=== PATIENT | female | born 1960 | race Caucasian/White ===

== ENCOUNTER 2018-07-09 00:35 | Observation (INO) | payer BC ==
--- NOTE | 2018-07-09 01:21 | EDM.PDOC ---
ED HPI GENERAL MEDICAL PROBLEM - General Chief Complaint: General Stated Complaint: fall Time Seen by Provider: 07/09/18 01:00 Source of Information: Reports: Patient, Family History Limitations: Reports: Language Barrier, Physical Impairment - History of Present Illness INITIAL COMMENTS - FREE TEXT/NARRATIVE: Patient is a 57-year-old with history of multiple system atrophy patient has been progressively getting worse was diagnosed approximately 2 years ago April 2016 but according to family patient has been ill with these symptoms for about 8 years progressively getting worse during the last couple days patient has progressive weakness to the point where her caregiver has been having hard time assisting with transfers and a ALd today patient was being transferred from her regular care to another chair and fell had a difficulty time getting her up patient fell again and was unable to to assist or get her back up to the chair 911 was called and patient was brought here for evaluation patient denies any pain from the fall just generalized weakness Onset: Gradual (Progressive weakness for about a year worsening in the last 4 days) Duration: Chronic, Getting Worse Location: Reports: Generalized Quality: Reports: Ache, Other (Weakness) Severity: Severe Improves with: Reports: None Worsens with: Reports: None Context: Reports: Other (Chronic illness) - Related Data Allergies Allergy/AdvReac Type Severity Reaction Status Date / Time No Known Allergies Allergy Verified 07/09/18 00:45 Home Meds: Home Meds ClonazePAM [KlonoPIN] 0.5 mg PO BEDTIME 07/09/18 [History] DULoxetine [Cymbalta] 60 mg PO BID 07/09/18 [History] Droxidopa [Northera] 400 mg PO BEDTIME 07/09/18 [History] Droxidopa [Northera] 500 mg PO DAILY 07/09/18 [History] Levothyroxine 25 mcg PO ACBREAKFAST 07/09/18 [History] Mirtazapine 15 mg PO BEDTIME 07/09/18 [History] Past Medical History Neurological History: Reports: Other (See Below) ED ROS GENERAL - Review of Systems Review Of Systems: See Below Constitutional: Reports: Fatigue HEENT: Reports: Eye Discharge, Glasses Respiratory: Reports: Shortness of Breath (Worse in the morning) Cardiovascular: Reports: No Symptoms, Blood Pressure Problem. Denies: Chest Pain Endocrine: Reports: Fatigue GI/Abdominal: Reports: Constipation. Denies: Abdominal Pain, Anorexia : Reports: Incontinence (Of urine has Araya catheter in place) Musculoskeletal: Reports: Other (Upper and lower extremity weakness also has Parkinson-like tremor) Skin: Reports: No Symptoms Neurological: Reports: Tremors, Trouble Speaking, Difficulty Walking, Weakness, Change in Speech, Gait Disturbance Psychiatric: Reports: No Symptoms Hematologic/Lymphatic: Reports: No Symptoms ED EXAM, GENERAL - Physical Exam Exam: See Below Exam Limited By: Other (Difficulty communicating secondary to an MSA) General Appearance: Alert, WD/WN, Severe Distress Ears: Normal External Exam, Normal Canal, Hearing Grossly Normal, Normal TMs Ear Exam: Bilateral Ear: Auricle Normal, Canal Normal, TM normal Nose: Normal Inspection, Normal Mucosa, No Blood Throat/Mouth: Normal Inspection, Normal Lips, Normal Teeth, Normal Gums, Normal Oropharynx, No Airway Compromise, Dysphagia, Inflammation. No: Normal Voice Head: Atraumatic, Normocephalic Neck: Normal Inspection, Supple, Non-Tender, Full Range of Motion Respiratory/Chest: Lungs Clear, Normal Breath Sounds, Chest Non-Tender, Decreased Breath Sounds Cardiovascular: Normal Peripheral Pulses, Regular Rate, Rhythm, No Edema, No Gallop, No JVD, No Murmur, No Rub GI/Abdominal: Normal Bowel Sounds, Soft, Non-Tender, Pelvis Stable, Other ( Constipation) (Female) Exam: Other (Araya) Rectal (Female) Exam: Deferred Back Exam: Decreased Range of Motion, Muscle Spasm, Other (Tremors Parkinson- like) Extremities: Limited Range of Motion, Other (Generalized weakness with tremors) . No: Pedal Edema Neurological: Alert, Oriented, CN II-XII Intact, Normal Cognition, Abnormal Gait , Sensory/Motor Deficit. No: Normal Gait Course - Vital Signs Last Recorded V/S: Last Vital Signs Temp 97.3 F 07/09/18 00:37 Pulse 92 07/09/18 00:37 Resp 20 07/09/18 00:37 BP 161/87 H 07/09/18 00:37 Pulse Ox 98 07/09/18 00:37 - Orders/Labs/Meds Orders: Active Orders 24 hr Category Date Time Status Communication Order [RC] ASDIRECTED Care 07/09/18 01:34 Active Communication Order [RC] ASDIRECTED Care 07/09/18 01:35 Active Communication Order [RC] ASDIRECTED Care 07/09/18 01:37 Active UA W/MICROSCOPIC [URIN] Stat Lab 07/09/18 01:32 Ordered Sodium Chloride 0.9% [Saline Flush] Med 07/09/18 01:33 Active 10 ml FLUSH ASDIRECTED PRN Saline Lock Insert [OM.PC] Stat Oth 07/09/18 01:34 Ordered Medication Orders Albuterol/Ipratropium (Duoneb 3.0-0.5 Mg/3 Ml) 3 ml NEB Q4H PRN PRN Reason: Dyspnea Clonazepam (Klonopin) 0.5 mg PO BEDTIME MELYSSA Lactated Ringer's (Ringers, Lactated) 1,000 mls @ 125 mls/hr IV ASDIRECTED MELYSSA Levothyroxine Sodium (Levothyroxine) 25 mcg PO ACBREAKFAST MELYSSA Mirtazapine (Remeron) 15 mg PO BEDTIME MELYSSA Non-Formulary Medication (Droxidopa [Northera]) 400 mg PO BEDTIME MELYSSA Non-Formulary Medication (Droxidopa [Northera]) 500 mg PO DAILY MELYSSA Non-Formulary Medication (Duloxetine [Cymbalta]) 60 mg PO BID MELYSSA Ondansetron HCl (Zofran Odt) 4 mg PO Q6H PRN PRN Reason: Nausea/Vomiting Sodium Chloride (Saline Flush) 10 ml FLUSH ASDIRECTED PRN PRN Reason: Keep Vein Open Labs: Laboratory Tests 07/09/18 07/09/18 07/09/18 Range/Units 01:32 01:32 01:32 WBC 11.8 H (4.0-10.2) K/uL RBC 4.47 (3.77-5.09) M/uL Hgb 13.5 (11.7-15.5) g/dL Hct 39.8 (34.0-46.0) % MCV 89.0 (84.0-98.0) fL MCH 30.2 (28.2-33.3) pg MCHC 33.9 (31.7-36.0) g/dL RDW 13.3 (11.2-14.1) % Plt Count 229 (150-350) K/uL Neut % (Auto) 82.5 H (45.0-80.0) % Lymph % (Auto) 10.8 (10.0-50.0) % Granite % (Auto) 5.6 (2.0-14.0) % Eos % (Auto) 0.8 (0.0-5.0) % Baso % (Auto) 0.3 (0.0-2.0) % Neut # (Auto) 9.72 H (1.40-7.00) K/uL Lymph # (Auto) 1.27 (0.50-3.50) K/uL Granite # (Auto) 0.66 (0.00-1.00) K/uL Eos # (Auto) 0.09 (0.00-0.50) K/uL Baso # (Auto) 0.03 (0.00-0.20) K/uL Sodium 139 (136-145) mmol/L Potassium 3.8 (3.5-5.1) mmol/L Chloride 102 (98-107) mmol/L Carbon Dioxide 26.3 (21.0-32.0) mmol/L BUN 17 (7-18) mg/dL Creatinine 0.79 (0.51-1.17) mg/dL Est Cr Clr Drug Dosing 71.39 mL/min Estimated GFR (MDRD) > 60 mL/min Glucose 121 H (74-106) mg/dL Lactic Acid 1.3 (0.4-2.0) mmol/L Calcium 8.9 (8.5-10.1) mg/dL Total Bilirubin 0.4 (0.2-1.0) mg/dL AST 30 (15-37) U/L ALT 38 (12-78) U/L Alkaline Phosphatase 99 (46-116) IU/L Total Protein 8.2 (6.4-8.2) g/dL Albumin 3.6 (3.4-5.0) g/dL Meds: Medications Generic Name Dose Route Start Last Admin Trade Name Freq PRN Reason Stop Dose Admin Albuterol/Ipratropium 3 ml 07/09/18 02:16 Duoneb 3.0-0.5 Mg/3 Ml NEB Q4H PRN Dyspnea Clonazepam 0.5 mg 07/09/18 20:00 Klonopin PO BEDTIME MELYSSA Lactated Ringer's 1,000 mls @ 125 mls/hr 07/09/18 02:30 Ringers, Lactated IV ASDIRECTED MELYSSA Levothyroxine Sodium 25 mcg 07/09/18 07:30 Levothyroxine PO ACBREAKFAST MELYSSA Mirtazapine 15 mg 07/09/18 20:00 Remeron PO BEDTIME MELYSSA Non-Formulary Medication 400 mg 07/09/18 20:00 Droxidopa [Northera] PO BEDTIME MELYSSA Non-Formulary Medication 500 mg 07/09/18 02:30 Droxidopa [Northera] PO DAILY MELYSSA Non-Formulary Medication 60 mg 07/09/18 08:00 Duloxetine [Cymbalta] PO BID MELYSSA Ondansetron HCl 4 mg 07/09/18 02:16 Zofran Odt PO Q6H PRN Nausea/Vomiting Sodium Chloride 10 ml 07/09/18 01:33 Saline Flush FLUSH ASDIRECTED PRN Keep Vein Open Departure - Departure Time of Disposition: 02:40 Disposition: Admitted As Inpatient 66 Condition: Poor Clinical Impression: Multiple system atrophy, Parkinson variant, Generalized weakness, Leukocytosis , unspecified - Discharge Information *PRESCRIPTION DRUG MONITORING PROGRAM REVIEWED*: No *COPY OF PRESCRIPTION DRUG MONITORING REPORT IN PATIENT JS: No - Problem List & Annotations (1) Multiple system atrophy, Parkinson variant SNOMED Code(s): 834698198 Code(s): G23.2 - STRIATONIGRAL DEGENERATION Status: Acute Current Visit: Yes Annotation/Comment:: Patient has fallen in the past and now admitted with general symptoms and falls will continue her medications as ordered consult social service physical therapy and speech pathology to assist in management. (2) Leukocytosis, unspecified SNOMED Code(s): 350897494, 727024250 Code(s): D72.829 - ELEVATED WHITE BLOOD CELL COUNT, UNSPECIFIED Status: Acute Current Visit: Yes Annotation/Comment:: Patient is being worked up at this time for possible UTI Qualifiers: Leukocytosis type: unspecified Qualified Code(s): D72.829 - Elevated white blood cell count, unspecified (3) Generalized weakness SNOMED Code(s): 89202528 Code(s): R53.1 - WEAKNESS Status: Acute Current Visit: Yes Annotation/ Comment:: Secondary to multiple system atrophy (4) Urinary tract infection SNOMED Code(s): 40129194 Code(s): N39.0 - URINARY TRACT INFECTION, SITE NOT SPECIFIED Status: Acute Current Visit: Yes Annotation/Comment:: At this time UA shows positive leukocyte Estrace positive white cells 50-75 moderate bacteria patient has been asymptomatic afebrile with indwelling Araya I will hold treatment until symptomatic - Problem List Review Problem List Initiated/Reviewed/Updated: Yes - My Orders Last 24 Hours: My Active Orders 07/09/18 01:32 UA W/MICROSCOPIC [URIN] Stat 07/09/18 01:33 Sodium Chloride 0.9% [Saline Flush] 10 ml FLUSH ASDIRECTED PRN 07/09/18 01:34 Communication Order [RC] ASDIRECTED Saline Lock Insert [OM.PC] Stat 07/09/18 01:35 Communication Order [RC] ASDIRECTED 07/09/18 01:37 Communication Order [RC] ASDIRECTED - Assessment/Plan Last 24 Hours: My Active Orders 07/09/18 01:32 UA W/MICROSCOPIC [URIN] Stat 07/09/18 01:33 Sodium Chloride 0.9% [Saline Flush] 10 ml FLUSH ASDIRECTED PRN 07/09/18 01:34 Communication Order [RC] ASDIRECTED Saline Lock Insert [OM.PC] Stat 07/09/18 01:35 Communication Order [RC] ASDIRECTED 07/09/18 01:37 Communication Order [RC] ASDIRECTED Plan: Patient will be admitted to the hospital for evaluation and treatment we will consult physical therapy and occupational therapy and social service and speech pathology.
[2018-07-09] MEDS ORDERED: Sodium Chloride 0.9% 10 ML Syringe FLUSH PRN (01:33)
[2018-07-09 02:07] LABS: CHLORIDE,CL 102 mmol/L (98-107); SODIUM,NA 139 mmol/L (136-145)
[2018-07-09] MEDS ORDERED: Albuterol/Ipratropium 3.0-0.5 MG/3 ML Neb Soln NEB PRN (02:16)
[2018-07-09] MEDS ORDERED: Ondansetron 4 MG Tab.DIS PO PRN (02:16)
[2018-07-09] MEDS ORDERED: Lactated Ringers 1,000 ML IV SCH (02:30)
[2018-07-09] MEDS ORDERED: DROXIDOPA PO SCH ×2 (02:30→20:00)
[2018-07-09] MEDS ORDERED: Non-Formulary Medication 1 Each PO SCH ×2 (03:14→08:00)
[2018-07-09] MEDS: DULoxetine 30 MG Cap PO SCH ×3 (03:33→21:03)
[2018-07-09] MEDS: Mirtazapine 15 MG Tab PO SCH ×2 (03:33→21:02)
[2018-07-09] MEDS: ClonazePAM 0.5 MG Tab PO SCH ×2 (03:34→21:02)
[2018-07-09] MEDS: DROXIDOPA PO SCH ×4 (03:35→21:03)
[2018-07-09 07:41] LABS: CHLORIDE,CL 106 mmol/L (98-107); SODIUM,NA 142 mmol/L (136-145)
[2018-07-09] MEDS ORDERED: DULoxetine 30 MG Cap PO SCH (08:00)
[2018-07-09] MEDS: Levothyroxine 25 MCG Tab PO SCH (08:04)
[2018-07-09] MEDS ORDERED: NORTHERA PO SCH (15:00)
[2018-07-09] MEDS ORDERED: ClonazePAM 0.5 MG Tab PO SCH (20:00)
[2018-07-09] MEDS ORDERED: Mirtazapine 15 MG Tab PO SCH (20:00)
[2018-07-10] MEDS: Levothyroxine 25 MCG Tab PO SCH (07:47)
[2018-07-10] MEDS: DROXIDOPA PO SCH (07:47)
[2018-07-10 08:44] VITALS: BP 120/72
[2018-07-10] MEDS: DULoxetine 30 MG Cap PO SCH (10:03)
--- NOTE | 2018-07-10 12:07 | PCM.DCSUM1 ---
Discharge Summary - Hospital Course Free Text/Narrative:: patient is a 57-year-old female who was admitted with generalized weakness secondary to multiple systemic atrophy at this time due to her condition and her weakness her will not be able to take care of her at home therefore we have referred her to [facility] for admission and care. Diagnosis: Stroke: No - Discharge Data Discharge Date: 07/10/18 Discharge Disposition: DC/Tfer to Long-Term Care 63 Condition: Good - Discharge Diagnosis/Problem(s) (1) Multiple system atrophy, Parkinson variant SNOMED Code(s): 002122598 ICD Code: G23.2 - STRIATONIGRAL DEGENERATION Status: Chronic Current Visit: Yes Problem Details: Patient has fallen in the past and now admitted with general symptoms and falls will continue her medications as ordered consult social service physical therapy and speech pathology to assist in management. [id number]- Patient will be admitted to [facility] today (2) Leukocytosis, unspecified SNOMED Code(s): 188240986, 242860502 ICD Code: D72.829 - ELEVATED WHITE BLOOD CELL COUNT, UNSPECIFIED Status: Resolved Current Visit: Yes Problem Details: Resolved Qualifiers: Leukocytosis type: unspecified Qualified Code(s): D72.829 - Elevated white blood cell count, unspecified (3) Generalized weakness SNOMED Code(s): 15567672 ICD Code: R53.1 - WEAKNESS Status: Acute Current Visit: Yes Problem Details: Secondary to multiple system atrophy (4) Urinary tract infection SNOMED Code(s): 73701317 ICD Code: N39.0 - URINARY TRACT INFECTION, SITE NOT SPECIFIED Status: Resolved Current Visit: Yes Problem Details: bacteria noted but no infection. this is chronic. Patient is asymptomatic. Qualifiers: Urinary tract infection type: site unspecified Hematuria presence: without hematuria Qualified Code(s): N39.0 - Urinary tract infection, site not specified - Patient Summary/Data Consults: Consultations 07/09/18 04:38 Consult to Occupational Therapy [OT Evaluation and Treatment] [CONS] Routine Consult to Physical Therapy [PT Evaluation and Treatment] [CONS] Routine 07/09/18 04:39 Consult to Case Management [CONS] Routine Consult to Speech Language Pathology [MANAGER LPN Evaluation and Treatment] [CONS] Routine - Patient Instructions Diet: Usual Diet as Tolerated (Celiac Diet) Activity: As Tolerated (per PT/OT recommendations) Driving: Do Not Drive Showering/Bathing: May Shower (with assistance) Other/Special Instructions: patient being admitted to [facility] today. PT/OT to work with patient at [facility] for generalized weakness. Patient to resume all home meds at [facility]. - Discharge Plan *PRESCRIPTION DRUG MONITORING PROGRAM REVIEWED*: No *COPY OF PRESCRIPTION DRUG MONITORING REPORT IN PATIENT JS: No Home Medications: Home Meds ClonazePAM [KlonoPIN] 0.5 mg PO BEDTIME 07/09/18 [History] DULoxetine [Cymbalta] 60 mg PO BID 07/09/18 [History] Droxidopa [Northera] 400 mg PO BEDTIME 07/09/18 [History] Droxidopa [Northera] 500 mg PO DAILY 07/09/18 [History] Levothyroxine 25 mcg PO ACBREAKFAST 07/09/18 [History] Mirtazapine 15 mg PO BEDTIME 07/09/18 [History] Forms: ED Department Discharge Referrals: Gregoria Simon MD [Primary Care Provider] - Rafal Kim MD [Emergency Provider] - (Dr. Kim will assume care of patient at [facility]) - Discharge Summary/Plan Comment DC Time >30 min.: No - General Info Date of Service: 07/10/18 - Review of Systems General: Reports: Weakness, Fatigue HEENT: Reports: No Symptoms Pulmonary: Reports: No Symptoms Cardiovascular: Reports: No Symptoms Gastrointestinal: Reports: No Symptoms Genitourinary: Denies: Frequency, Burning, Pain Skin: Reports: No Symptoms Neurological: Reports: Pre-Existing Deficit Psychiatric: Reports: No Symptoms - Patient Data Vitals - Most Recent: Last Vital Signs Temp 97.6 F 07/10/18 08:00 Pulse 82 07/10/18 08:00 Resp 16 07/10/18 08:00 BP 120/72 07/10/18 08:00 Pulse Ox 93 L 07/10/18 08:00 Weight - Most Recent: 249 lb 0.017 oz I&O - Last 24 hours: Intake & Output 07/09/18 07/10/18 07/10/18 22:59 06:59 14:59 Intake Total 220 360 Output Total 2200 Balance -1980 360 Med Orders - Current: Current Medications Albuterol/Ipratropium (Duoneb 3.0-0.5 Mg/3 Ml) 3 ml NEB Q4H PRN PRN Reason: Dyspnea Clonazepam (Klonopin) 0.5 mg PO BEDTIME [facility] Last Admin: 07/09/18 21:02 Dose: 0.5 mg Duloxetine HCl (Cymbalta) 60 mg PO BID@1000,2200 [facility] Last Admin: 07/10/18 10:03 Dose: 60 mg Levothyroxine Sodium (Levothyroxine) 25 mcg PO ACBREAKFAST [facility] Last Admin: 07/10/18 07:47 Dose: 25 mcg Mirtazapine (Remeron) 15 mg PO BEDTIME [facility] Last Admin: 07/09/18 21:02 Dose: 15 mg Ondansetron HCl (Zofran Odt) 4 mg PO Q6H PRN PRN Reason: Nausea/Vomiting Northera 100mg/Cap (Am Dose Own Med) 0 each PO DAILY [facility] Last Admin: 07/10/18 07:47 Dose: 1 each Northera 100mg/Cap (3pm Dose Own Med) 0 each PO DAILY@1500 [facility] Last Admin: 07/09/18 15:26 Dose: 1 each Northera 100mg/Cap (Hs Dose Own Med) 0 each PO BEDTIME [facility] Last Admin: 07/09/18 21:03 Dose: 4 each Sodium Chloride (Saline Flush) 10 ml FLUSH ASDIRECTED PRN PRN Reason: Keep Vein Open Discontinued Medications Clonazepam (Klonopin) 0.5 mg PO BEDTIME MELYSSA Duloxetine HCl (Cymbalta) 60 mg PO BID [facility] Lactated Ringer's (Ringers, Lactated) 1,000 mls @ 125 mls/hr IV ASDIRECTED [facility] Last Admin: 07/09/18 03:31 Dose: 125 mls/hr Mirtazapine (Remeron) 15 mg PO BEDTIME MELYSSA Non-Formulary Medication (Droxidopa [Northera]) 400 mg PO BEDTIME MELYSSA Non-Formulary Medication (Droxidopa [Northera]) 500 mg PO DAILY [facility] Last Admin: 07/09/18 06:55 Dose: Not Given - Exam General: Reports: Alert, Oriented, Cooperative HEENT: Reports: Pupils Equal, Pupils Reactive, EOMI, Mucous Membr. Moist/[place] Neck: Reports: Supple Lungs: Reports: Clear to Auscultation, Normal Respiratory Effort Cardiovascular: Reports: Regular Rate, Regular Rhythm GI/Abdominal Exam: Normal Bowel Sounds, Soft, Non-Tender, No Organomegaly, No Distention, No Abnormal Bruit, No Mass, Pelvis Stable (Female) Exam: Deferred Rectal (Female) Exam: Deferred Back Exam: Reports: Normal Inspection Extremities: Normal Inspection Skin: Reports: Warm, Dry Neurological: Reports: No New Focal Deficit Psy/Mental Status: Reports: Alert, Normal Affect, Normal Mood
--- NOTE | 2018-07-11 19:43 | PCM.SN ---
- Free Text/Narrative Note: Urine culture + for Klebsiella. Sensitive to Macrobid. Rx for Macrobid sent to [facility]. Nursing staff contacted [facility] to instruct them to hide house supervisor the prescription and administer to patient.
== END 2018-07-10 13:10 | disposition home or self-care (01) ==
LOC: LL.ED 00:35 → UNDOADMIN 02:07 → LL.MS 02:07 → UNDOADMIN 02:11 → LL.MS 02:11 → INTOOBSV 02:16 → LL.MS 02:16
PROVIDERS: ADMIT Family Medicine; ATTEND Family Medicine
DX: G23.2 Striatonigral degeneration (principal); D72.829 Elevated white blood cell count, unspecified; R53.1 Weakness; N39.0 Urinary tract infection, site not specified; B96.1 Klebsiella pneumoniae [K. pneumoniae] as the cause of diseases classified elsewhere; Z79.899 Other long term (current) drug therapy
CPT/HCPCS: 36000; 36415; 51702; 71045; 80048; 80053; 81001; 83605; 85025; 87086; 87088; 87186; 92526-GN; 92610-GN; 96360; 96361; 97163-GP; 99285; A9270-GY; G0378; J7120

== ENCOUNTER 2019-07-16 03:50 | Emergency (ER) | payer BC ==
[2019-07-16] MEDS ORDERED: Sodium Chloride 0.9% 10 ML Syringe FLUSH PRN (03:56)
[2019-07-16] MEDS ORDERED: methylPREDNISolone Sodium Succinate 125 MG/2 ML SDV IVPUSH ONE (04:16)
[2019-07-16 04:30] LABS: CHLORIDE,CL 101 mmol/L (98-107); SODIUM,NA 142 mmol/L (136-145)
--- NOTE | 2019-07-16 04:44 | EDM.PDOC ---
ED HPI GENERAL MEDICAL PROBLEM - General Chief Complaint: Respiratory Problem Stated Complaint: SOB Time Seen by Provider: 07/16/19 03:55 Source of Information: Reports: Patient, EMS, Other ([facility]) History Limitations: Reports: Other (difficult to understand patient's speech) - History of Present Illness INITIAL COMMENTS - FREE TEXT/NARRATIVE: Patient brought in to ER from [facility] due to sudden SOB. Normal day for patient yesterday. No other signs of illness/changes. Patient has chronic neurodegenerative disorder with Parkinson's features. No fevers/chills. No recent other illnesses. No recent med changes. was recently ill with a viral infection that "came on quickly" per self report and spent time with the patient while he was feeling ill. - Related Data Allergies Allergy/AdvReac Type Severity Reaction Status Date / Time No Known Allergies Allergy Verified 07/16/19 04:44 Home Meds: Home Meds Albuterol [Ventolin HFA] 1 puff INH Q4H PRN 07/16/19 [History] Carbidopa/Levodopa [Sinemet 25-100 mg Tablet] 1 tab PO DAILY@06,10,14,18 [History] DULoxetine [Cymbalta] 40 mg PO BEDTIME 07/16/19 [History] DULoxetine [Cymbalta] 60 mg PO DAILY 07/16/19 [History] Droxidopa [Northera] 5 cap PO DAILY@06,15 07/16/19 [History] Droxidopa [Northera] 400 mg PO BEDTIME 07/16/19 [History] Ferrous Fumarate/Vitamin C [Vitron-C] 1 tab PO DAILY 07/16/19 [History] Furosemide [Lasix] 1.5 tab PO DAILY@08,14 07/16/19 [History] Levothyroxine Sodium [Synthroid] 25 mcg PO DAILY@06 07/16/19 [History] Magnesium Hydroxide [Milk of Magnesia] 30 ml PO DAILY PRN 07/16/19 [History] Mirtazapine [Remeron] 30 mg PO BEDTIME 07/16/19 [History] Naproxen Sodium [Naproxen Sodium ER] 500 mg PO Q12H PRN 07/16/19 [History] RX: Baclofen 5 mg PO DAILY@14,20 07/16/19 [History] RX: Baclofen 10 mg PO DAILY@08 07/16/19 [History] RX: Benztropine Mesylate 1 tab PO DAILY@08,15 07/16/19 [History] RX: Bisacodyl [Dulcolax] 5 mg PO Q12H PRN 07/16/19 [History] RX: ClonazePAM [KlonoPIN] 1.5 tab PO BEDTIME 07/16/19 [History] RX: Glycopyrrolate [Robinul] 1 mg PO BEDTIME 07/16/19 [History] RX: Midodrine 2.5 mg PO DAILY PRN 07/16/19 [History] RX: Polyethylene Glycol 3350 [MiraLAX] 17 gm PO DAILY 07/16/19 [History] Sennosides/Docusate Sodium [Senna-S] 2 each PO DAILY 07/16/19 [History] Past Medical History Neurological History: Reports: Other (See Below) Social & Family History - Tobacco Use Smoking Status *Q: Never Smoker - Caffeine Use Caffeine Use: Reports: None - Recreational Drug Use Recreational Drug Use: No ED ROS GENERAL - Review of Systems Review Of Systems: See Below Constitutional: Denies: Fever, Chills, Malaise, Night Sweats, Diaphoresis HEENT: Reports: No Symptoms (no acute changes) Respiratory: Reports: Shortness of Breath, Wheezing. Denies: Pleuritic Chest Pain, Cough, Sputum, Hemoptysis Cardiovascular: Reports: No Symptoms, Edema (chronic). Denies: Chest Pain, Palpitations GI/Abdominal: Reports: No Symptoms : Reports: No Symptoms Musculoskeletal: Reports: No Symptoms (no acute changes from baseline) Skin: Reports: No Symptoms. Denies: Cyanosis Neurological: Reports: No Symptoms. Denies: Confusion, Headache Psychiatric: Reports: No Symptoms Hematologic/Lymphatic: Reports: No Symptoms ED EXAM, GENERAL - Physical Exam Exam: See Below Exam Limited By: No Limitations General Appearance: Alert, Mild Distress, Obese Eye Exam: Bilateral Eye: EOMI, PERRL Ears: Normal External Exam Throat/Mouth: No Airway Compromise, Other (lips/oral mucosa somewhat dry, patient mouthbreathing) Head: Atraumatic, Normocephalic Neck: Supple Respiratory/Chest: Chest Non-Tender, Decreased Breath Sounds (throughout), Wheezing (mild), Accessory Muscle Use (mild). No: Crackles, Rhonchi, Stridor Cardiovascular: No Murmur, Tachycardia Peripheral Pulses: 2+: Radial (L), Radial (R) GI/Abdominal: Normal Bowel Sounds, Soft, Non-Tender. No: Guarding, Rigid, Rebound, Tender (Female) Exam: Deferred Rectal (Female) Exam: Deferred Back Exam: No: Muscle Spasm Extremities: Non-Tender, Normal Capillary Refill, Pedal Edema (mild, bilateral) . No: Increased Warmth, Mottled, Pallor, Redness Neurological: Alert, Oriented, Normal Cognition, Sensory/Motor Deficit (chronic weakness from neurodegenerative disorder) Psychiatric: Normal Affect, Normal Mood Skin Exam: Warm, Dry, Intact, Normal Color EKG INTERPRETATION EKG Date: 07/16/19 Time: 04:05 Rhythm: Other (sinus tach) Rate (Beats/Min): 109 [place]: Normal P-Wave: Present QRS: Normal ST-T: Other (no obvious ST change reflecting ischemia noted) QT: Normal Comparison: Other: (very noisy baseline due to patient's chronic tremor) Course - Vital Signs Last Recorded V/S: Last Vital Signs Temp 37.7 C 07/16/19 07:11 Pulse 107 H 07/16/19 07:11 Resp 20 07/16/19 07:11 BP 111/66 07/16/19 07:11 Pulse Ox 94 L 07/16/19 07:11 - Orders/Labs/Meds Orders: Active Orders 24 hr Category Date Time Status EKG Documentation Completion [RC] ASDIRECTED Care 07/16/19 03:57 Active RT Aerosol Therapy [RC] ASDIRECTED Care 07/16/19 04:48 Active Chest 1V Frontal [CR] Stat Exams 07/16/19 03:57 Taken PE Chest [Ang Chest] [CT] Stat Exams 07/16/19 04:48 Taken TROPONIN I [CHEM] Stat Lab 07/16/19 09:00 Ordered Levothyroxine Med 07/16/19 05:13 Active 25 mcg PO ACBREAKFAST Sodium Chloride 0.9% [Saline Flush] Med 07/16/19 03:56 Active 10 ml FLUSH ASDIRECTED PRN Saline Lock Insert [OM.PC] Stat Oth 07/16/19 03:56 Ordered Medication Orders Levothyroxine Sodium (Levothyroxine) 25 mcg PO ACBREAKFAST MELYSSA Last Admin: 07/16/19 05:42 Dose: 25 mcg Sodium Chloride (Saline Flush) 10 ml FLUSH ASDIRECTED PRN PRN Reason: Keep Vein Open Last Admin: 07/16/19 04:23 Dose: 10 ml Labs: Laboratory Tests 07/16/19 07/16/19 07/16/19 Range/Units 04:04 04:04 04:04 WBC 10.3 H (4.0-10.2) K/uL RBC 4.40 (3.77-5.09) M/uL Hgb 13.6 (11.7-15.5) g/dL Hct 41.1 (34.0-46.0) % MCV 93.4 D (84.0-98.0) fL MCH 30.9 (28.2-33.3) pg MCHC 33.1 (31.7-36.0) g/dL RDW 14.0 (11.2-14.1) % Plt Count 232 (150-350) K/uL Neut % (Auto) 81.7 H (45.0-80.0) % Lymph % (Auto) 11.7 (10.0-50.0) % [place] % (Auto) 5.9 (2.0-14.0) % Eos % (Auto) 0.5 (0.0-5.0) % Baso % (Auto) 0.2 (0.0-2.0) % Neut # (Auto) 8.40 H (1.40-7.00) K/uL Lymph # (Auto) 1.20 (0.50-3.50) K/uL [place] # (Auto) 0.61 (0.00-1.00) K/uL Eos # (Auto) 0.05 (0.00-0.50) K/uL Baso # (Auto) 0.02 (0.00-0.20) K/uL D-Dimer, Quantitative 489 H (0-400) ng/mL Sodium 142 (136-145) mmol/L Potassium 3.8 (3.5-5.1) mmol/L Chloride 101 (98-107) mmol/L Carbon Dioxide 29.3 (21.0-32.0) mmol/L BUN 15 (7-18) mg/dL Creatinine 0.58 (0.51-1.17) mg/dL Est Cr Clr Drug Dosing 102.81 mL/min Estimated GFR (MDRD) > 60 mL/min Glucose 140 H (74-106) mg/dL Lactic Acid (0.4-2.0) mmol/L Calcium 9.4 (8.5-10.1) mg/dL Magnesium 1.8 (1.8-2.4) mg/dL Total Bilirubin 0.5 (0.2-1.0) mg/dL AST 23 (15-37) U/L ALT 26 (12-78) U/L Alkaline Phosphatase 102 (46-116) IU/L Troponin I 0.008 (0.000-0.056) ng/mL NT-Pro-B Natriuret Pep 35 (0-125) pg/mL Total Protein 8.4 H (6.4-8.2) g/dL Albumin 3.7 (3.4-5.0) g/dL 07/16/19 Range/Units 04:04 WBC (4.0-10.2) K/uL RBC (3.77-5.09) M/uL Hgb (11.7-15.5) g/dL Hct (34.0-46.0) % MCV (84.0-98.0) fL MCH (28.2-33.3) pg MCHC (31.7-36.0) g/dL RDW (11.2-14.1) % Plt Count (150-350) K/uL Neut % (Auto) (45.0-80.0) % Lymph % (Auto) (10.0-50.0) % [place] % (Auto) (2.0-14.0) % Eos % (Auto) (0.0-5.0) % Baso % (Auto) (0.0-2.0) % Neut # (Auto) (1.40-7.00) K/uL Lymph # (Auto) (0.50-3.50) K/uL [place] # (Auto) (0.00-1.00) K/uL Eos # (Auto) (0.00-0.50) K/uL Baso # (Auto) (0.00-0.20) K/uL D-Dimer, Quantitative (0-400) ng/mL Sodium (136-145) mmol/L Potassium (3.5-5.1) mmol/L Chloride (98-107) mmol/L Carbon Dioxide (21.0-32.0) mmol/L BUN (7-18) mg/dL Creatinine (0.51-1.17) mg/dL Est Cr Clr Drug Dosing mL/min Estimated GFR (MDRD) mL/min Glucose (74-106) mg/dL Lactic Acid 2.6 H (0.4-2.0) mmol/L Calcium (8.5-10.1) mg/dL Magnesium (1.8-2.4) mg/dL Total Bilirubin (0.2-1.0) mg/dL AST (15-37) U/L ALT (12-78) U/L Alkaline Phosphatase (46-116) IU/L Troponin I (0.000-0.056) ng/mL NT-Pro-B Natriuret Pep (0-125) pg/mL Total Protein (6.4-8.2) g/dL Albumin (3.4-5.0) g/dL Meds: Medications Generic Name Dose Route Start Last Admin Trade Name Freq PRN Reason Stop Dose Admin Levothyroxine Sodium 25 mcg 07/16/19 05:13 07/16/19 05:42 Levothyroxine PO 25 mcg ACBREAKFAST MELYSSA Administration Sodium Chloride 10 ml 07/16/19 03:56 07/16/19 04:23 Saline Flush FLUSH 10 ml ASDIRECTED PRN Administration Keep Vein Open Discontinued Medications Generic Name Dose Route Start Last Admin Trade Name Freq PRN Reason Stop Dose Admin Albuterol/Ipratropium 3 ml 07/16/19 04:48 07/16/19 05:42 Duoneb 3.0-0.5 Mg/3 Ml NEB 07/16/19 04:49 3 ml ONETIME ONE Administration Carbidopa/Levodopa 1 tab 07/16/19 05:13 07/16/19 05:42 Sinemet 25-100 Mg PO 07/16/19 05:14 1 tab ONETIME ONE Administration Iopamidol 100 ml 07/16/19 05:00 07/16/19 05:28 Isovue-370 (76%) IVPUSH 07/16/19 05:01 100 ml ONETIME ONE Administration Methylprednisolone Sodium Succinate 125 mg 07/16/19 04:16 07/16/19 04:22 Solu-Medrol IVPUSH 07/16/19 04:17 125 mg ONETIME ONE Administration - Re-Assessments/Exams Free Text/Narrative Re-Assessment/Exam: 07/16/19 04:45 Patient received saline Neb at [facility], [facility] [place] from EMS. [place] improved by time of arrival to ER. EKG showed no obvious acute ST elevation. Troponin/CBC/Chem/BNP unremarkable overall. Blood sugar 140. Lactic acid 2.4 DDImer over 400 Chest film suggested pulmonary edema. CT of chest ordered given elevated DDimer to r/o PE. Additionally, Solu-medrol and another neb ordered. Free Text/Narrative Re-Assessment/Exam: 07/16/19 08:00 Observing in ER until 0900 second troponin draw. Patient continues to feel much improved. Vital signs stable. No further complaint of increased shortness of breath. CT showed no evidence of focal pneumonia or PE, however study was suboptimal given patient's continuous tremor. Suspect given patient's recent exposure to her while he had a viral illness, it is very possible she has picked up the same virus given the low level fever, and acute respiratory change. assuming patient's care at 0800 Departure - Departure Time of Disposition: 08:03 Disposition: Still A Patient 30 Condition: Good Clinical Impression: Shortness of breath - Discharge Information Forms: ED Department Discharge - My Orders Last 24 Hours: My Active Orders 07/16/19 03:56 Sodium Chloride 0.9% [Saline Flush] 10 ml FLUSH ASDIRECTED PRN Saline Lock Insert [OM.PC] Stat 07/16/19 03:57 EKG Documentation Completion [RC] ASDIRECTED Chest 1V Frontal [CR] Stat 07/16/19 04:48 RT Aerosol Therapy [RC] ASDIRECTED PE Chest [Ang Chest] [CT] Stat 07/16/19 05:13 Levothyroxine 25 mcg PO ACBREAKFAST 07/16/19 09:00 TROPONIN I [CHEM] Stat - Assessment/Plan Last 24 Hours: My Active Orders 07/16/19 03:56 Sodium Chloride 0.9% [Saline Flush] 10 ml FLUSH ASDIRECTED PRN Saline Lock Insert [OM.PC] Stat 07/16/19 03:57 EKG Documentation Completion [RC] ASDIRECTED Chest 1V Frontal [CR] Stat 07/16/19 04:48 RT Aerosol Therapy [RC] ASDIRECTED PE Chest [Ang Chest] [CT] Stat 07/16/19 05:13 Levothyroxine 25 mcg PO ACBREAKFAST 07/16/19 09:00 TROPONIN I [CHEM] Stat
[2019-07-16] MEDS ORDERED: Albuterol/Ipratropium 3.0-0.5 MG/3 ML Neb Soln NEB ONE (04:48)
[2019-07-16] MEDS ORDERED: Iopamidol 755 Mg/ML 100 ML Bottle IVPUSH ONE (05:00)
[2019-07-16] MEDS ORDERED: Carbidopa/Levodopa 25-100 MG Tab PO ONE (05:13)
[2019-07-16] MEDS ORDERED: Levothyroxine 25 MCG Tab PO SCH (05:13)
[2019-07-16 10:49] VITALS: BP 121/70; PULSE 102
== END 2019-07-16 10:20 ==
LOC: LL.ED 03:50
DX: R06.02 Shortness of breath (principal); Z79.899 Other long term (current) drug therapy
CPT/HCPCS: 36415; 71045; 71275; 80053; 83605; 83735; 83880; 84484; 85025; 85379; 93005; 94640; 96374; 99285-25; A9270-GY; J2930; J7620-GY; Q9967

== ENCOUNTER 2021-07-30 17:37 | Emergency (ER) | payer BC, MEDICAID ==
--- NOTE | 2021-07-30 18:21 | EDM.PDOC ---
ED HPI GENERAL MEDICAL PROBLEM - General Chief Complaint: Respiratory Problem Stated Complaint: hypoxic Time Seen by Provider: 07/30/21 17:45 Source of Information: Reports: Patient, EMS, Long-Term Records, Old Records - History of Present Illness INITIAL COMMENTS - FREE TEXT/NARRATIVE: Pt. presents to ER via ambulance. She is a resident at [facility], with a primary diagnosis of multiple system atrophy with cerebellar features, affecting he ability to speak, ambulate, and swallow. Staff at the shelter reports that the patient has been experiencing some cough, has had increased work of breathing, and was found to have a room air O2 sat of 85%. She is on O2 at night. Pt. states that on initial exam she has not real complaints, and feels the symptoms are not far off from baseline. She denies any significant shortness of breath, chills, substernal chest pain, nausea, vomiting, or diarrhea. She states that her last BM was yesterday. Staff at the shelter stated that the patient was exposed to a patient with covid 19 yesterday. She denies any sore throat, sinus congestion. She states that she is always fatigued. Onset: Today Onset Date: 07/29/21 Location: Reports: Chest, Generalized - Related Data Allergies Allergy/AdvReac Type Severity Reaction Status Date / Time No Known Allergies Allergy Verified 07/30/21 18:28 Home Meds: Home Meds Albuterol [Ventolin HFA] 1 puff INH Q4H PRN 07/16/19 [History] Baclofen 5 mg PO DAILY@,07/16/19 [History] Baclofen 10 mg PO DAILY@07/16/19 [History] Benztropine Mesylate 1 tab PO DAILY@,07/16/19 [History] Carbidopa/Levodopa [Sinemet 25-100 mg Tablet] 1 tab PO DAILY@06,,14,18 07/16/19 [History] ClonazePAM [KlonoPIN] 1.5 tab PO BEDTIME 07/16/19 [History] DULoxetine [Cymbalta] 40 mg PO BEDTIME 07/16/19 [History] DULoxetine [Cymbalta] 60 mg PO DAILY 07/16/19 [History] Droxidopa [Northera] 5 cap PO DAILY@,07/16/19 [History] Droxidopa [Northera] 400 mg PO BEDTIME 07/16/19 [History] Ferrous Fumarate/Vitamin C [Vitron-C] 1 tab PO DAILY 07/16/19 [History] Furosemide [Lasix] 1.5 tab PO DAILY@08,14 07/16/19 [History] Glycopyrrolate [Robinul] 1 mg PO BEDTIME 07/16/19 [History] Levothyroxine Sodium [Synthroid] 25 mcg PO DAILY@06 07/16/19 [History] Magnesium Hydroxide [Milk of Magnesia] 30 ml PO DAILY PRN 07/16/19 [History] Midodrine 2.5 mg PO DAILY PRN 07/16/19 [History] Mirtazapine [Remeron] 30 mg PO BEDTIME 07/16/19 [History] Naproxen Sodium [Naproxen Sodium ER] 500 mg PO Q12H PRN 07/16/19 [History] Sennosides/Docusate Sodium [Senna-S] 2 each PO DAILY 07/16/19 [History] bisacodyL [Dulcolax] 5 mg PO Q12H PRN 07/16/19 [History] polyethylene glycoL 3350 [MiraLAX] 17 gm PO DAILY 07/16/19 [History] Atropine 1% [Atropine 1% Ophth Soln] 2 applic .ROUTE TID 07/30/21 [History] Dextran 70/Hypromellose/PF [Artificial Tears Drops] 1 applic EYEBOTH BID 11/19 [History] Donepezil HCl [Aricept] 20 mg PO BEDTIME 07/30/21 [History] Famotidine 20 mg PO DAILY 07/30/21 [History] Fenofibrate,Micronized [Fenofibrate] 134 mg PO BEDTIME 07/30/21 [History] Ferrous Fumarate/Vitamin C [Vitron-C] 1 tab PO DAILY 07/30/21 [History] Furosemide 40 mg PO DAILY 07/30/21 [History] Gabapentin [Neurontin] 300 mg PO DAILY 07/30/21 [History] Ipratropium [Atrovent HFA Inh] 2 puff .XX TID PRN 07/30/21 [History] Melatonin 6 mg PO BEDTIME 07/30/21 [History] Potassium Chloride 10 meq PO DAILY 07/30/21 [History] guaiFENesin [Mucinex] 600 mg PO BID 07/30/21 [History] Past Medical History Genitourinary History: Reports: Retention, Urinary Other Genitourinary History: tapia catheter in place Musculoskeletal History: Reports: Other (See Below) Other Musculoskeletal History: degenerative muscular atrophy Neurological History: Reports: Other (See Below) Endocrine/Metabolic History: Reports: Hypothyroidism Social & Family History - Caffeine Use Caffeine Use: Reports: None ED ROS GENERAL - Review of Systems Review Of Systems: See Below Constitutional: Reports: No Symptoms. Denies: Fever, Chills, Malaise, Weakness, Fatigue, Diaphoresis HEENT: Reports: No Symptoms Respiratory: Reports: Shortness of Breath, Cough Cardiovascular: Reports: No Symptoms. Denies: Lightheadedness Endocrine: Reports: No Symptoms GI/Abdominal: Reports: No Symptoms. Denies: Diarrhea, Hematemesis, Hematochezia, Melena, Nausea, Vomiting : Reports: No Symptoms Musculoskeletal: Reports: No Symptoms Skin: Reports: No Symptoms Neurological: Reports: Trouble Speaking, Gait Disturbance, Other (See HPI. Has chronic weakness, problems walking, speaking, swallowing. Is on thickened liquids. Prone to aspiration.) Psychiatric: Reports: No Symptoms Hematologic/Lymphatic: Reports: No Symptoms Immunologic: Reports: No Symptoms ED EXAM, GENERAL - Physical Exam Exam: See Below Exam Limited By: No Limitations General Appearance: Alert, WD/WN, No Apparent Distress Head: Atraumatic, Normocephalic Neck: Normal Inspection, Supple, Non-Tender, Full Range of Motion Respiratory/Chest: Decreased Breath Sounds, Crackles, Rhonchi Cardiovascular: Normal Peripheral Pulses, Regular Rate, Rhythm, No Edema, No JVD, No Murmur Peripheral Pulses: 4+: Radial (L) GI/Abdominal: Soft, Non-Tender, No Distention, No Mass (Female) Exam: Deferred Rectal (Female) Exam: Deferred Back Exam: Normal Inspection, Full Range of Motion Extremities: Normal Inspection, Normal Range of Motion, Non-Tender, No Pedal Edema, Normal Capillary Refill Neurological: Alert, Oriented, CN II-XII Intact, Normal Cognition, Other (globally weak, unable to sit up on her own. Speech very difficult to understand. Unable to ambulate.) Psychiatric: Normal Affect, Normal Mood Skin Exam: Warm, Dry, Intact, Normal Color Lymphatic: No Adenopathy #1 Interpretation Rhythm: NSR [place]: Normal P-Wave: Present QRS: Normal ST-T: Normal QT: Normal Course - Vital Signs Last Recorded V/S: Last Vital Signs Temp 36.3 C 07/30/21 18:03 Pulse 82 07/30/21 19:09 Resp 22 H 07/30/21 19:09 BP 101/62 07/30/21 19:09 Pulse Ox 97 07/30/21 19:09 - Orders/Labs/Meds Orders: Active Orders 24 hr Category Date Time Status Peripheral IV Care [RC] . DIRECTED Care 07/30/21 18:07 Active Chest 1V Frontal [CR] Stat Exams 07/30/21 18:11 Ordered CORONAVIRUS COVID-19 MUNIR [MOLEC] Routine Lab 07/30/21 18:00 Received CULTURE BLOOD [BC] Stat Lab 07/30/21 18:00 Received CULTURE BLOOD [BC] Stat Lab 07/30/21 18:30 Ordered CULTURE URINE [RM] Stat Lab 07/30/21 19:00 Received Sodium Chloride 0.9% [Saline Flush] Med 07/30/21 18:07 Active 10 ml FLUSH ASDIRECTED PRN Blood Culture x2 Reflex Set [OM.PC] Stat Oth 07/30/21 18:30 Ordered Isolation [COMM] Routine Oth 07/30/21 18:08 Active Peripheral IV Insertion Adult [OM.PC] Routine Oth 07/30/21 18:07 Ordered Medication Orders Sodium Chloride (Sodium Chloride 0.9% 10 Ml Syringe) 10 ml FLUSH ASDIRECTED PRN PRN Reason: Keep Vein Open Last Admin: 07/30/21 19:09 Dose: 10 ml Documented by: BRENDA Labs: Laboratory Tests 07/30/21 07/30/21 07/30/21 Range/Units 18:00 18:00 18:00 WBC 4.0 (4.0-10.2) K/uL RBC 4.40 (3.77-5.09) M/uL Hgb 13.4 (11.7-15.5) g/dL Hct 40.9 (34.0-46.0) % MCV 93.0 (84.0-98.0) fL MCH 30.5 (28.2-33.3) pg MCHC 32.8 (31.7-36.0) g/dL RDW 13.4 (11.2-14.1) % Plt Count 259 D (150-350) K/uL Neut % (Auto) 56.6 (45.0-80.0) % Lymph % (Auto) 27.5 (10.0-50.0) % Haines % (Auto) 10.6 (2.0-14.0) % Eos % (Auto) 4.5 (0.0-5.0) % Baso % (Auto) 0.8 (0.0-2.0) % Neut # (Auto) 2.25 (1.40-7.00) K/uL Lymph # (Auto) 1.09 (0.50-3.50) K/uL Haines # (Auto) 0.42 (0.00-1.00) K/uL Eos # (Auto) 0.18 (0.00-0.50) K/uL Baso # (Auto) 0.03 (0.00-0.20) K/uL PT 9.8 (9.5-12.0) SEC INR 1.0 APTT 25.5 (24.5-32.8) SEC D-Dimer, Quantitative 147 (0-400) ng/mL Sodium (136-145) mmol/L Potassium (3.5-5.1) mmol/L Chloride (98-107) mmol/L Carbon Dioxide (21.0-32.0) mmol/L Anion Gap (7-15) meq/L BUN (7-18) mg/dL Creatinine (0.51-1.17) mg/dL Est Cr Clr Drug Dosing Estimated GFR (MDRD) mL/min Glucose (70-99) mg/dL Lactic Acid (0.4-2.0) mmol/L Calcium (8.5-10.1) mg/dL Phosphorus (2.6-4.7) mg/dL Magnesium (1.8-2.4) mg/dL Total Bilirubin (0.2-1.0) mg/dL AST (15-37) U/L ALT (12-78) U/L Alkaline Phosphatase (46-116) IU/L Troponin I High Sens (<=51) ng/L C-Reactive Protein (<=0.9) mg/dL NT-Pro-B Natriuret Pep (0-125) pg/mL Total Protein (6.4-8.2) g/dL Albumin (3.4-5.0) g/dL Specimen Type Urine Color Urine Appearance Urine pH (5.0-9.0) Ur Specific [place] (1.005-1.030) Urine Protein (NEGATIVE) mg/dL Urine Glucose (UA) (NEGATIVE) mg/dL Urine Ketones (NEGATIVE) mg/dL Urine Occult Blood (NEGATIVE) Urine Nitrite (NEGATIVE) Urine Bilirubin (NEGATIVE) Urine Urobilinogen (0.2-1.0) E.U./dL Ur Leukocyte Esterase (NEGATIVE) Urine RBC /HPF Urine WBC /HPF Ur Epithelial Cells /LPF Amorphous Sediment (0/HPF) /HPF Urine Bacteria (NONE TO FEW) /HPF SARS-CoV-2 Ag (Rapid) (NEGATIVE) 07/30/21 07/30/21 07/30/21 Range/Units 18:00 18:00 18:00 WBC (4.0-10.2) K/uL RBC (3.77-5.09) M/uL Hgb (11.7-15.5) g/dL Hct (34.0-46.0) % MCV (84.0-98.0) fL MCH (28.2-33.3) pg MCHC (31.7-36.0) g/dL RDW (11.2-14.1) % Plt Count (150-350) K/uL Neut % (Auto) (45.0-80.0) % Lymph % (Auto) (10.0-50.0) % Haines % (Auto) (2.0-14.0) % Eos % (Auto) (0.0-5.0) % Baso % (Auto) (0.0-2.0) % Neut # (Auto) (1.40-7.00) K/uL Lymph # (Auto) (0.50-3.50) K/uL Haines # (Auto) (0.00-1.00) K/uL Eos # (Auto) (0.00-0.50) K/uL Baso # (Auto) (0.00-0.20) K/uL PT (9.5-12.0) SEC INR APTT (24.5-32.8) SEC D-Dimer, Quantitative (0-400) ng/mL Sodium 143 (136-145) mmol/L Potassium 3.7 (3.5-5.1) mmol/L Chloride 104 (98-107) mmol/L Carbon Dioxide 30.9 (21.0-32.0) mmol/L Anion Gap 8.1 (7-15) meq/L BUN 20 H (7-18) mg/dL Creatinine 0.92 (0.51-1.17) mg/dL Est Cr Clr Drug Dosing TNP Estimated GFR (MDRD) > 60 mL/min Glucose 113 H (70-99) mg/dL Lactic Acid 0.7 (0.4-2.0) mmol/L Calcium 9.0 (8.5-10.1) mg/dL Phosphorus 4.0 (2.6-4.7) mg/dL Magnesium 2.3 (1.8-2.4) mg/dL Total Bilirubin 0.4 (0.2-1.0) mg/dL AST 19 (15-37) U/L ALT 20 (12-78) U/L Alkaline Phosphatase 64 (46-116) IU/L Troponin I High Sens 6 (<=51) ng/L C-Reactive Protein 3.1 H (<=0.9) mg/dL NT-Pro-B Natriuret Pep 76 (0-125) pg/mL Total Protein 8.3 H (6.4-8.2) g/dL Albumin 3.6 (3.4-5.0) g/dL Specimen Type Urine Color Urine Appearance Urine pH (5.0-9.0) Ur Specific [place] (1.005-1.030) Urine Protein (NEGATIVE) mg/dL Urine Glucose (UA) (NEGATIVE) mg/dL Urine Ketones (NEGATIVE) mg/dL Urine Occult Blood (NEGATIVE) Urine Nitrite (NEGATIVE) Urine Bilirubin (NEGATIVE) Urine Urobilinogen (0.2-1.0) E.U./dL Ur Leukocyte Esterase (NEGATIVE) Urine RBC /HPF Urine WBC /HPF Ur Epithelial Cells /LPF Amorphous Sediment (0/HPF) /HPF Urine Bacteria (NONE TO FEW) /HPF SARS-CoV-2 Ag (Rapid) Negative (NEGATIVE) 07/30/21 Range/Units 19:00 WBC (4.0-10.2) K/uL RBC (3.77-5.09) M/uL Hgb (11.7-15.5) g/dL Hct (34.0-46.0) % MCV (84.0-98.0) fL MCH (28.2-33.3) pg MCHC (31.7-36.0) g/dL RDW (11.2-14.1) % Plt Count (150-350) K/uL Neut % (Auto) (45.0-80.0) % Lymph % (Auto) (10.0-50.0) % Haines % (Auto) (2.0-14.0) % Eos % (Auto) (0.0-5.0) % Baso % (Auto) (0.0-2.0) % Neut # (Auto) (1.40-7.00) K/uL Lymph # (Auto) (0.50-3.50) K/uL Haines # (Auto) (0.00-1.00) K/uL Eos # (Auto) (0.00-0.50) K/uL Baso # (Auto) (0.00-0.20) K/uL PT (9.5-12.0) SEC INR APTT (24.5-32.8) SEC D-Dimer, Quantitative (0-400) ng/mL Sodium (136-145) mmol/L Potassium (3.5-5.1) mmol/L Chloride (98-107) mmol/L Carbon Dioxide (21.0-32.0) mmol/L Anion Gap (7-15) meq/L BUN (7-18) mg/dL Creatinine (0.51-1.17) mg/dL Est Cr Clr Drug Dosing Estimated GFR (MDRD) mL/min Glucose (70-99) mg/dL Lactic Acid (0.4-2.0) mmol/L Calcium (8.5-10.1) mg/dL Phosphorus (2.6-4.7) mg/dL Magnesium (1.8-2.4) mg/dL Total Bilirubin (0.2-1.0) mg/dL AST (15-37) U/L ALT (12-78) U/L Alkaline Phosphatase (46-116) IU/L Troponin I High Sens (<=51) ng/L C-Reactive Protein (<=0.9) mg/dL NT-Pro-B Natriuret Pep (0-125) pg/mL Total Protein (6.4-8.2) g/dL Albumin (3.4-5.0) g/dL Specimen Type Urincc Urine Color Yellow Urine Appearance Cloudy Urine pH 6.0 (5.0-9.0) Ur Specific [place] 1.020 (1.005-1.030) Urine Protein 100 H (NEGATIVE) mg/dL Urine Glucose (UA) Negative (NEGATIVE) mg/dL Urine Ketones Negative (NEGATIVE) mg/dL Urine Occult Blood Moderate H (NEGATIVE) Urine Nitrite Positive H (NEGATIVE) Urine Bilirubin Negative (NEGATIVE) Urine Urobilinogen 0.2 (0.2-1.0) E.U./dL Ur Leukocyte Esterase Moderate H (NEGATIVE) Urine RBC >100 H /HPF Urine WBC 30-40 H /HPF Ur Epithelial Cells Few /LPF Amorphous Sediment Many H (0/HPF) /HPF Urine Bacteria Many H (NONE TO FEW) /HPF SARS-CoV-2 Ag (Rapid) (NEGATIVE) Meds: Medications Generic Name Dose Route Start Last Admin Trade Name Freq PRN Reason Stop Dose Admin Sodium Chloride 10 ml 07/30/21 18:07 07/30/21 19:09 Sodium Chloride 0.9% 10 Ml Syringe FLUSH 10 ml ASDIRECTED PRN Administration Keep Vein Open Discontinued Medications Generic Name Dose Route Start Last Admin Trade Name Freq PRN Reason Stop Dose Admin Ceftriaxone Sodium 2 gm/ 100 mls @ 200 mls/hr 07/30/21 18:55 07/30/21 19:07 Sodium Chloride IV 07/30/21 19:24 200 mls/hr ONETIME ONE Administration - Radiology Interpretation Free Text/Narrative:: Atelectasis in bases Departure - Departure Time of Disposition: 20:00 Disposition: DC/Tfer to [facility] Clinical Impression: Atelectasis - Discharge Information Instructions: Amoxicillin; Clavulanic Acid Tablets, Atelectasis, Adult, Doxycycline tablets or capsules, Urinary Tract Infection, Adult, Probiotics Referrals: Roro Suggs NP [Primary Care Provider] - Forms: ED Department Discharge Additional Instructions: Tomorrow, start doxycycline 100mg 1 tab twice daily for 10 days Augmentin 875mg 1 tab twice daily for 10 days O2 to keep O2 sat above 90% Encourage plenty of fluids Recheck in clinic in 10-14 days, sooner if not gradually improving. Sepsis Event Note (ED) - Evaluation Sepsis Screening Result: No Definite Risk - Focused Exam Vital Signs: Vital Signs Temp Pulse Resp BP BP Pulse Ox 07/30/21 19:09 82 22 H 101/62 97 07/30/21 18:03 36.3 C 77 18 125/77 100 - Problem List Review Problem List Initiated/Reviewed/Updated: Yes - My Orders Last 24 Hours: My Active Orders 07/30/21 18:00 CORONAVIRUS COVID-19 MUNIR [MOLEC] Routine CULTURE BLOOD [BC] Stat 07/30/21 18:07 Peripheral IV Care [RC] . DIRECTED Sodium Chloride 0.9% [Saline Flush] 10 ml FLUSH ASDIRECTED PRN Peripheral IV Insertion Adult [OM.PC] Routine 07/30/21 18:08 Isolation [COMM] Routine 07/30/21 18:11 Chest 1V Frontal [CR] Stat 07/30/21 18:30 CULTURE BLOOD [BC] Stat Blood Culture x2 Reflex Set [OM.PC] Stat 07/30/21 19:00 CULTURE URINE [RM] Stat - Assessment/Plan Last 24 Hours: My Active Orders 07/30/21 18:00 CORONAVIRUS COVID-19 MUNIR [MOLEC] Routine CULTURE BLOOD [BC] Stat 07/30/21 18:07 Peripheral IV Care [RC] . DIRECTED Sodium Chloride 0.9% [Saline Flush] 10 ml FLUSH ASDIRECTED PRN Peripheral IV Insertion Adult [OM.PC] Routine 07/30/21 18:08 Isolation [COMM] Routine 07/30/21 18:11 Chest 1V Frontal [CR] Stat 07/30/21 18:30 CULTURE BLOOD [BC] Stat Blood Culture x2 Reflex Set [OM.PC] Stat 07/30/21 19:00 CULTURE URINE [RM] Stat Plan: Tomorrow, start doxycycline 100mg 1 tab twice daily for 10 days Augmentin 875mg 1 tab twice daily for 10 days O2 to keep O2 sat above 90% Encourage plenty of fluids Recheck in clinic in 10-14 days, sooner if not gradually improving.
[2021-07-30 18:22] LABS: PTT,PARTIAL THROMBOPLSTIN TIME 25.5 SEC (24.5-32.8)
[2021-07-30 18:31] LABS: ANION GAP 8.1 meq/L (7-15); CHLORIDE,CL 104 mmol/L (98-107); SODIUM,NA 143 mmol/L (136-145)
[2021-07-30] MEDS: cefTRIAXone 2 GM in Sodium Chloride 0.9% 100 ML IV ONE (19:07)
[2021-07-30] MEDS: Sodium Chloride 0.9% 10 ML Syringe FLUSH PRN (19:09)
[2021-07-30 19:10] VITALS: BP 101/62; PULSE 82
== END 2021-07-30 20:15 ==
LOC: LL.ED 17:37
DX: J98.11 Atelectasis (principal); E03.9 Hypothyroidism, unspecified; Z79.899 Other long term (current) drug therapy; Z20.822 Contact with and (suspected) exposure to COVID-19
CPT/HCPCS: 36415; 71045; 80053; 81001; 83605; 83735; 83880; 84100; 84484; 85025; 85379; 85610; 85730; 86140; 87040; 87086; 87088; 87186; 87426; 87804; 93005; 93010; 96365; 99284; 99285-25; J0696; U0002